=== PATIENT | female | born 1955 | race Native Hawaiian/Other Pacific Islander ===

== ENCOUNTER 2017-03-22 10:15 | Outpatient (CLI) | payer BC | END 2017-03-22 19:07 | disposition home or self-care (01) | LOC: MAMMO 10:15 | DX: Z12.31 Encounter for screening mammogram for malignant neoplasm of breast (principal); M05.79 Rheumatoid arthritis with rheumatoid factor of multiple sites without organ or systems involvement | CPT/HCPCS: G0202-TC ==

== ENCOUNTER 2017-05-12 08:54 | Outpatient (CLI) | payer BC | END 2017-05-12 20:00 | disposition home or self-care (01) | LOC: RAD 08:54 | DX: M85.89 Other specified disorders of bone density and structure, multiple sites (principal) ==

== ENCOUNTER 2017-08-22 14:00 | Outpatient (CLI) | payer BC | END 2017-08-22 15:30 | disposition home or self-care (01) | LOC: MRI 14:00 | DX: M25.551 Pain in right hip (principal) ==

== ENCOUNTER 2018-05-10 10:17 | Outpatient (CLI) | payer OTHER | END 2018-05-10 20:02 | disposition home or self-care (01) | LOC: RAD 10:17 | DX: R07.89 Other chest pain (principal) ==

== ENCOUNTER 2019-01-25 10:12 | Outpatient (CLI) | payer OTHER ==
[2019-01-25 10:52] LABS: PLATELET COUNT 282 K/uL (152-353)
[2019-01-25 11:23] LABS: POTASSIUM 3.8 mmol/L (3.6-5.2)
== END 2019-01-25 19:54 | disposition home or self-care (01) ==
LOC: LABW 10:12
PROVIDERS: Nurse Practitioner
DX: D64.9 Anemia, unspecified (principal); E03.8 Other specified hypothyroidism; E87.5 Hyperkalemia; E53.8 Deficiency of other specified B group vitamins
CPT/HCPCS: 36415; 80048; 82607; 84443; 85027

== ENCOUNTER 2019-04-17 08:36 | Emergency (ER) | payer OTHER ==
[~2019-04-17] VITALS: Ht 154.9 cm; Wt 95.3 kg
[2019-04-17] MEDS ORDERED: HYDROCO/APAP1 T14 PO (09:11)
[2019-04-17] MEDS ORDERED: TIROSINT50 MCG PO (09:12)
[2019-04-17] MEDS ORDERED: KP FOLIC ACID1 MG PO ×2 (09:13→09:19)
[2019-04-17] MEDS ORDERED: ESCITALOPRAM10 MG PO (09:13)
[2019-04-17] MEDS ORDERED: OMEPRAZOLE40 MG PO (09:14)
[2019-04-17] MEDS ORDERED: LISI20TA11 PO (09:15)
[2019-04-17] MEDS ORDERED: TIZANIDINE HYDRO4 MG PO (09:16)
[2019-04-17] MEDS ORDERED: TRAZODONE HYDR150 MG PO (09:18)
[2019-04-17] MEDS ORDERED: LYRICA100 MG PO (09:18)
[2019-04-17] MEDS ORDERED: TRELEGY ELLIPTA1 AER INH (09:20)
[2019-04-17] MEDS ORDERED: PHENTERMINE37.5 MG PO (09:21)
[2019-04-17 09:28] LABS: PLATELET COUNT 252 K/uL (152-353)
[2019-04-17 09:35] LABS: POTASSIUM 3.4 mmol/L (3.6-5.2)
[2019-04-17 11:40] VITALS: BP 143/83; TEMP 97.6
== END 2019-04-17 11:40 | disposition home or self-care (01) ==
LOC: ED 08:36
PROVIDERS: Family Medicine
DX: K29.60 Other gastritis without bleeding (principal); R11.2 Nausea with vomiting, unspecified; E87.6 Hypokalemia
CPT/HCPCS: 36415; 74022; 80053; 85027; 99283; J2405

== ENCOUNTER 2019-05-01 09:48 | Outpatient (CLI) | payer OTHER ==
[~2019-05-01 09:48] MED LIST: ESCITALOPRAM10 MG PO; HYDROCO/APAP1 T14 PO; KP FOLIC ACID1 MG PO; LISI20TA11 PO; LYRICA100 MG PO; OMEPRAZOLE40 MG PO; PHENTERMINE37.5 MG PO; TIROSINT50 MCG PO; TIZANIDINE HYDRO4 MG PO; TRAZODONE HYDR150 MG PO; TRELEGY ELLIPTA1 AER INH
== END 2019-05-01 23:01 | disposition home or self-care (01) ==
LOC: RAD 09:48
DX: Z13.820 Encounter for screening for osteoporosis (principal); N95.8 Other specified menopausal and perimenopausal disorders

== ENCOUNTER 2019-06-20 13:14 | Outpatient (CLI) | payer OTHER | END 2019-06-20 22:18 | disposition home or self-care (01) | LOC: MAMMO 13:14 | DX: Z12.31 Encounter for screening mammogram for malignant neoplasm of breast (principal) ==

== ENCOUNTER 2020-05-21 11:41 | Outpatient (CLI) | payer OTHER | END 2020-05-21 22:06 | disposition home or self-care (01) | LOC: RAD 11:41 | DX: R06.02 Shortness of breath (principal) ==

== ENCOUNTER 2020-06-12 08:19 | Outpatient (CLI) | payer OTHER | END 2020-06-12 14:14 | disposition home or self-care (01) | LOC: LAB 08:19 | PROVIDERS: ATTEND Nurse Practitioner Family | DX: R06.02 Shortness of breath (principal); R53.83 Other fatigue; R52 Pain, unspecified | CPT/HCPCS: 87635; G2023; U0003 ==

== ENCOUNTER 2021-02-13 10:30 | Outpatient (CLI) | payer OTHER ==
[2021-02-13 10:54] LABS: PLATELET COUNT 257 K/uL (152-353)
[2021-02-13 11:28] LABS: POTASSIUM 4.8 mmol/L (3.6-5.2)
== END 2021-02-13 21:47 | disposition home or self-care (01) ==
LOC: LAB 10:30
PROVIDERS: ATTEND Internal Medicine
DX: I11.0 Hypertensive heart disease with heart failure (principal); E03.8 Other specified hypothyroidism; K21.9 Gastro-esophageal reflux disease without esophagitis; F41.8 Other specified anxiety disorders; J44.9 Chronic obstructive pulmonary disease, unspecified; D64.89 Other specified anemias; E53.8 Deficiency of other specified B group vitamins; E66.9 Obesity, unspecified; Z79.899 Other long term (current) drug therapy; E55.9 Vitamin D deficiency, unspecified
CPT/HCPCS: 80053; 80061; 82306; 82607; 83036; 84439; 84443; 85027

== ENCOUNTER 2021-04-15 12:12 | Inpatient (IN) | payer OTHER ==
[~2021-04-15] VITALS: Ht 152.4 cm; Wt 68.2 kg
[2021-04-15 17:01] LABS: PLATELET COUNT 268 K/uL (152-353)
[2021-04-15 17:07] LABS: POTASSIUM 4.2 mmol/L (3.6-5.2)
[2021-04-15 17:53] VITALS: BP 141/72; TEMP 98.4; Ht 152.4 cm; Wt 68.2 kg
--- NOTE | 2021-04-15 18:14 | NUR ---
1212 REPORT RECIEVED FROM YOUSIF GEE. AT [facility] 1530 PT ARRIVED TO [facility] VIA STRETCHER ACCOMPANIED BY STAFF FROM [facility]. HEAD TO TOE ASSESSMENT COMPLETED. SKIN TEAR TO LFA. RED AREA TO RT TRICEP, RED AREA TO LEFT TRICEP. 0.5CMX0.5CMX0.1CM RED AREA TO LABIA MAJORA.
[2021-04-15 19:51] VITALS: BP 116/67; TEMP 98.8
--- NOTE | 2021-04-15 20:30 | NUR ---
ROUNDS MADE. PT COMPLAINED WITH PAIN. PT DOES HAVE DURGESIC PATCH 12.5 MG AND DURGESIC PATCH [address] ASSESSMENT WAS DONE. PT WITH FIXATOR TO LEFT ANKLE. DAVID HOSE TO RIGHT LEG. PT USING WICK WITH ASSISTANCE WITH URINATION.
--- NOTE | 2021-04-16 06:20 | NUR ---
PATIENT HAD A TOTAL BED CHANF AND WAS REPOSITIONED. PATIENT WAS GIVEN SOMETHING FOR PAIN AND SOMETHING TO DRINK
[2021-04-16 08:00] VITALS: BP 125/56; TEMP 99
--- NOTE | 2021-04-16 11:03 | NUR ---
CALLED POLLY AT [phone] FOR WOUND CARE INSTRUCTIONS. MESSAGE LEFT
--- NOTE | 2021-04-16 14:24 | NUR ---
POLLY CALLED FROM DR HOOD OFFICE PT HAS FOLLOW P AP[POINTMENT ON 04/24/21 AT 10 AM. ORDERS TO KEEP SURGICAL SITE CLEAN DRY AND INTACT.
--- NOTE | 2021-04-16 15:03 | NUR ---
KAYCE DOUGHERTY RN AND MYSELF NICOLE MOSHER LPN, CM SPOKE WITH MRS. MONTOYA CONCERNING HER TRANSPORT TO HER DR APPT ON APRIL 24, 2021 @ 10:00. PATIENT HAS AGREED FOR [facility] TO TRANSPORT HER BY STRETCHER DUE TO HAVING AN EXTERNAL FIXATOR AND NEEDING MEDICAL PERSONNEL TO MONITOR.I SPOKE WITH REHANA AT DR. HOOD OFFICE TO CONFIRM THAT THE PATIENT WOULD BE ABLE TO ATTEND THE DR APPOINTMENT WITH MRS. MONTOYA.
[2021-04-16 19:44] VITALS: BP 114/57; TEMP 98.9
[2021-04-16] MEDS ORDERED: LYRICA150 MG PO ×2 (20:18→20:20)
[2021-04-16] MEDS ORDERED: ROPI5T PO (20:22)
[2021-04-16] MEDS ORDERED: METOPROLOL25 M1 PO (20:23)
[2021-04-16] MEDS ORDERED: PRED10TA27 PO (20:24)
[2021-04-16] MEDS ORDERED: HYDR5TAB9 PO (20:25)
[2021-04-16] MEDS ORDERED: DULO60CA2 PO (20:26)
[2021-04-16] MEDS ORDERED: ONDA4TAB3 PO (20:26)
[2021-04-16] MEDS ORDERED: PEPCID20 MG PO (20:27)
--- NOTE | 2021-04-17 03:14 | NUR ---
PATIENT WAS HELPPED TO THE BEDPPAN. THE PATIENT ROLLED WITH MINIMAL ASSIST. PATIENT STATED, "I CANNOT WIPE MY SELF." I WIPPED THE PATIENT AND THEN AFTER SHE WAS FINISHED. THE PATIENT WAS COACHED ON HOD TO PULL HERSELF UP IN BED. AND PATIENT ALSO ASSISTED IN REPOSITONING HERSELF
--- NOTE | 2021-04-17 04:52 | NUR ---
PATIENT VOICED PAIN IN HER LEG AND WAS REPOSITIONED AND GIVEN PRN PAIN MEDICATION
--- NOTE | 2021-04-17 06:44 | NUR ---
Patient is in the Swing Bed program and I visited yesterday am at lunch time and saw she and her and tlaking with them and Silva nurse was in the room while I was talking with them. She receives chicken pot pie and steamed broccoli and yogurt with blueberries. She said she has not had an appeitet d/t smells and nausea but I observed her eating and she ate good and stated she can't eat broccoli gives her too much gas and I passed this along to the FSD/CDM Afsaneh to note on her diet card. Per chart is on a Regular diet and 2000 Calorie diet plan. Open fracture and dislocation of left ankle, afib, HTN, CHF, chronic pain to back, Fibromyalgia, and is 5' at 210.2 lbs. and is a 65YOF and BMI at 41 and is Class III Obesity and kcal and IBW for height is 100+/-10% ((0 to 110) and is 210% of IBW and kcal needs x 25 = 1100, x 30 = 1400, x 35 = 1600, x 40 = 1800 kcal/day, protein needs at 68 grams and fluids x 25 = 1100, x 30 = 1400, x 35 = 1600, x 40 = 1800 ml/cc per day and has a diagnosis of CHF so may want to limit to 1500 ml/cc per day. Was sent from [facility] in [place] and has an appointment to return in the next week or so and Kia was at IDT meeting and she is going to rescheudle for a later appointemtn was at 10:00 am and now wanting 1:00 pm. this is what aptient and family want as well as transport. BOOP, CKD, chronic pain, CHF, Degenerative Disc Disease, HTN, Macrocyctic Anemia, morbid obesity, sleep apnea, RA, and RBC, Hgb, Hct, MCHC and calcium all depressed and MCV, MCH and RDW all elevated and RD reviewed the whole chart/EMR. RD Recommendations: 1-Clarification on diet order- on MD's notes has a Regular diet and on patient name with name has 2000 calorie. Needs to be on 2000 Calorie HIGH FIBER and Cardiac or Low Sodium Low Fat d/t diagnosis if will follow and if won't follow needs to get a dietary refusal signed. 2-Monitor Labs 3-PT to work with the patient 4-OT to work with the patient and Shellie was at the meeting who is SP 5-Increase foods High In Fe 6-Increase foods high in Calcium 7-Make sure hydrated 8-Add Vitamin C 500 mg BID 9-Add ZNSO4 220 mg per day and d/c in 14 days 10-Add protein 30 ml/cc or 1 scoop TID to help with healing. 11-Pain Management 12-If limit fluids d/t DHF may want to limit to 1500 ml/cc per day.
--- NOTE | 2021-04-17 08:30 | NUR ---
PT LAYING IN BED IN LF. AM ASSESSMENT COMPLETED AT THIS TIME. HR NOTED TO BE REGULAR ON AUSCULTATION, LUNGS SOUNDS CLEAR THROUGH OUT BILAT. NO EDEMA NOTED. PT ALERT AND ORIENTED X4. PT ASSISTED ON BEDPAN BY RODERICK DUNCAN AND MYSELF. PT NOTED TO HAVE LARGE LOOSE BM. DRESSING TO LEFT LOWER EXTREMITY INTACT AROUND EXTERNAL FIXATOR, ELEVATED ON PILLOWS. PT DENIES ANY PAIN AT THIS TIME. PT PULLED SELF OVER IN BED TO GET ON BEDPAN. PT TOLERATED AM MEDS WELL. NAD NOTED.
[2021-04-17 09:00] VITALS: BP 107/52; TEMP 98.7
--- NOTE | 2021-04-17 10:40 | NUR ---
PT CALLED TO [facility] REQUESTING HER PAIN MEDICATION AT THIS TIME.
--- NOTE | 2021-04-17 10:45 | NUR ---
PT MEDICATED FOR PAIN PER MD ORDERS.
--- NOTE | 2021-04-17 13:00 | NUR ---
LAURA PT REPORTS ASSISTING PT BACK TO BED.
--- NOTE | 2021-04-17 13:15 | NUR ---
IN TO CHECK ON PT. PT NOTED TO BE AT BEDSIDE. PT LAYING IN BED ON LEFT SIDE IN LF. LLE ELEVATED. PT DENIES ANY NEEDS OR C/O AT THIS TIME. PT'S REPORTS GIVEN THE NURSE YESTERDAY AND COPY OF HER HOME MEDICATION LIST ALONG WITH SOME OTHER PAPERS AND DID NOT REC'V THEM BACK. OBTAINED PAPER'S PT'S REQUESTED BACK, MADE A COPY AND GAVE TO LESLIE STUART COORDINATOR AND RETURNED ORIGINALS BACK TO PT'S . PT ASSISTED ON TO BEDPAN AT THIS TIME WITH MINIMAL ASSISTANCE. INSTRUCTED PT TO CALL WHEN SHE WAS FINISHED.
[2021-04-17 20:00] VITALS: BP 107/55; TEMP 98.3
--- NOTE | 2021-04-17 21:00 | NUR ---
ENTERED PATIENT'S ROOM AT THIS TIME. PATIENT RESTING QUIETLY IN BED WATCHING TV. NAD NOTED. REPORTS NO SIGNIFICANT PAIN AT THIS TIME. LEFT LOWER EXTREMITY ELEVATED. EXTERNAL FIXATOR INTACT. PATIENT IS ABLE TO MOVE HER TOES. TWO FENTANYL PATCHES INTACT TO UPPER BACK. SHE DOES REPORT SOME NAUSEA- ZOFRAN 4MG ODT GIVEN PER MD ORDERS. ASSISTED HER IN BED. NO OTHER CONCERNS VOICED AT THIS TIME. CALL LIGHT WITHIN REACH.
--- NOTE | 2021-04-18 00:50 | NUR ---
PATIENT CALLED REQUESTING SOMETHING FOR PAIN. OXYCODONE 5MG GIVEN. CALL LIGHT WITHIN REACH.
--- NOTE | 2021-04-18 01:30 | NUR ---
PATIENT REQUESTING THAT I LISTEN TO HER LUNGS. SHE IS CONCERNED THAT SHE HAS DEVELOPED A SLIGHT COUGH. I DID REMIND HER THAT UPON ASSESSMENT HER LUNGS WERE CLEAR, BUT I ALSO LISTENED TO THEM A SECOND TIME. LUNG SOUNDS CLEAR TO AUSCULTATION. PATIENT DOES HAVE A SMALL COUGH THAT DOES NOT APPEAR TO BE PRODUCTIVE. HUEYN VERBALIZED UNDERSTANDING OF THE ABOVE. CALL LIGHT WITHIN REACH.
--- NOTE | 2021-04-18 07:35 | NUR ---
PT LAYING IN BED IN LF. PT JUST SLOWLY WAKING UP. PT REQUESTS TO BE PLACED ON BEDPAN. PT NOTED TO HAVE A WET DEPENDS ON AT THIS TIME. PT VOIDED IN BEDPAN. PT CLEANED AND DRYED BY ME. SPRINKLED LIGHT AMOUNT OF BABY POWDER ON PT'S CHUCKS AND SHEETS TO PREVENT SWEATING AND STICKING TO HER. NO REDNESS OR BREAKDOWN NOTED AT THIS TIME.
[2021-04-18 08:00] VITALS: BP 140/55; TEMP 99.6
--- NOTE | 2021-04-18 08:50 | NUR ---
AM ASSESSMENT COMPLETED AT THIS TIME. MINIMAL SWELLING NOTED TO LLE. EXTERNAL FIXATOR IN PLACE AND DRESSING CLEAN DRY AND INTACT. CAP REFILL TO LLE <3 SECONDS. PEDAL PULSE PRESENT AND REGULAR IN RLE. NO SWELLING NOTED TO RLE. PT REPORTS HER ABD FEELING BLOATED. POSITIVE BS X4 QUADRANTS. HR REGULAR ON AUSCULTATION. BILAT LUNG SOUNDS CLEAR THROUGH OUT. PT ALERT AND ORIENTED X4. NAD NOTED. PT TOLERATED AM MEDS WELL WITHOUT DIFFICULTY. PT REQUESTED MIRALX MIXED IN GRAPE JUICE. PT RATES PAIN 10 AT THIS TIME IN LLE. PT GIVEN PAIN MED PER MD ORDERS. TOMER, PT HERE TO PREFORM THERAPY WITH PT. PT REFUSES STATING SHE "WILL HAVE TO WAIT UNTIL HER PAIN MEDICINE KICKS IN BEFORE SHE DOES THERAPY OR SHE WILL GET NAUSEATED." TOMER STATES "WE CAN DO SOME ARM EXERCISES WHILE WE WAIT FOR YOUR PAIN MEDICINE TO START WORKING" PT AGAIN REFUSES TO DO UPPER EXTREMITY EXERCISES UNTIL HER PAIN MEDICINE IS WORKING. TOMER THEN TELLS HER "OK I WILL COME BACK BUT JUST KNOW IT WILL PROBABLY BE AFTER LUNCH BEFORE I CAN GET BACK OVER HERE" PT VERBALIZES UNDERSTANDING. REMINDED PT THAT IF SHE DOES NOT PERFORM HER THERAPY WE DO HAVE TO DOCUMENT THAT SHE IS REFUSING HER THERAPY. PT STATES "THEY BETTER NOT SAY I REFUSED" REMINDED PT THAT SHE HAS REFUSED AT THIS TIME AND THERAPIST WILL BE BACK AFTER LUNCH TO WORK WITH HER AND SHE WILL NEED TO WORK WITH HER. PT VERBALIZES UNDERSTANDING.
[2021-04-18 20:02] VITALS: BP 119/67; TEMP 98.4
--- NOTE | 2021-04-18 20:50 | NUR ---
PT ALERT AND ORIENTED LAYING IN BED WITH HOB ELEVATED WATCHING TV WITH NO S/S OF ACUTE DISTRESS NOTED, EXTERNAL FIXATOR AND DRESSING INTACT TO L LOWER LEG WITH NO PROBLEMS NOTED, RESP RATE NONLABORED ON ROOM AIR. PT TALKATIVE WITH REED DIPPER. NIGHTLY MEDS GIVEN PT HELD MED CUP AND DRINK TOOK MEDS PER SELF. PRN ROXICODONE 5MG PO GIVEN PER PT REQUEST FOR CONSTANT PAIN TO L LOWER LEG THAT IS A "9" ON SCALE. WILL MONITOR CLOSELY, RAILS UP, BED IN LOW POSITION, CALL LIGHT IN REACH, ENCOURAGED TO CALL NEEDED.
--- NOTE | 2021-04-18 22:00 | NUR ---
PT RESTING WITH EYES CLOSED, NO ACUTE DISTRESS NOTED, WILL MONITOR CLOSELY.
--- NOTE | 2021-04-19 01:00 | NUR ---
RESTING IN BED WITH EYES CLOSED, NO S/S OF PAIN OR DISTRESS NOTED, RESP RATE NONLABORED, WILL MONITOR, RAILS UP, BED IN LOW POSITION, CALL LIGHT IN REACH.
--- NOTE | 2021-04-19 03:06 | NUR ---
PT CALLED TECHNICAL OPERATIONS MANAGER LIGHT, PT PLACED ON BEDPAN WITH ASSIST. WILL MONITOR CLOSELY, RAILS UP, BED IN LOW POSITION, CALL LIGHT IN REACH.
--- NOTE | 2021-04-19 03:47 | NUR ---
PT AWAKE AND TALKATIVE WITH MARINE METEOROLOGIST, BROUGHT PT SNACK OF SOUP PER REQUEST. C/O CONSTANT PAIN TO L LOWER LEG THAT IS A '7" AND WHEN ASKED TO DESCRIBE THE PAIN SHE STATES PAIN THAT ABOUT TO GET WORSE. GAVE ROXICODONE 5MG PO PRN PER REQUEST. ALSO MENTIONS SLIGHT RED IRRITATED AREAS IN ABD FOLD AND UNDER BREAST, INFORMED PT THAT MARINE METEOROLOGIST WOULD PASS ALONG TO DAY SHIFT SO DR COULD ORDER POSSIBLY SOME NYSTATIN FOR THE AREAS, PT ACKNOWLEDGES UNDERSTANDING. PLASTIC SANDOVAL UNDER PT CHANGED TO WASHABLE FABRIC SANDOVAL DUE TO PT HAS WHAT SHE STATES IS HEALING HEAT RASH ON HER BACK BUT IT IS ITCHING HER AGAIN, WIPED AREA WITH COOL WIPE PER REQUEST THEN CHANGED SANDOVAL UNDER PT NOTE PT ROLLS SIDE TO SIDE WITH LIMITED ASSIST. WILL MONITOR, RAILS UP, BED IN LOW POSITION, CALL LIGHT IN REACH.
--- NOTE | 2021-04-19 04:20 | NUR ---
STATES HER PAIN HAS DECREASED TO 5 ON SCALE SINCE PRN MEDICATION, ALSO STATES THAT A LEVEL 5 IS TOLERABLE.
--- NOTE | 2021-04-19 05:15 | NUR ---
PT AWAKE LAYING IN BED WITH NO S/S OF PAIN OR DISTRESS NOTED, RESP RATE NONLABORED, ON ROOM AIR, EXTERNAL FIXATOR AND DRESSING INTACT TO L LOWER LEG WITH NO PROBLEMS NOTED TO SITE. L LEG ELEVATED ON PILLOW PER PT REQUEST STATES THAT HER LEG FEELS BETTER ON PILLOW. TALKATIVE WITH STAFF, WILL MONITOR, RAILS UP, BED IN LOW POSITION. NOTE PT LIFTS L LEG UP BY HER SELF AND STRIPPER PRINTED CIRCUIT BOARDS PLACED PILLOW UNDER LEG.
[2021-04-19 08:00] VITALS: BP 118/66; TEMP 98.5
--- NOTE | 2021-04-19 10:09 | NUR ---
INFORMED DR. SALDAÑA OF PT HAVING INCREASING REDDNESS TO FOLDS UNDER BREAST AND ABDOMEN, DR. SALDAÑA ORDES NYSTOP POWDER TID PRN, NO FURTHER ORDERS GIVEN AT THIS TIME
--- NOTE | 2021-04-19 17:02 | NUR ---
NOTIFIED DR. SALDAÑA OF PT'S HR CURRENTLY 115 AND PT HAS A HOME MEDICATION OF METOPROLOL 50MG BID THAT WAS NOT RESTARTED, DR. SALDAÑA STATES DUE TO PT'S BP REMAINING LOW TO START PT ON METOPROLOL 12.5 PO BID AND HOLD IF SYSTOLIC IS LESS THAN 110, NO FURTHER ORDERS GIVEN AT THIS TIME
[2021-04-19 20:00] VITALS: BP 141/89; TEMP 98.9
--- NOTE | 2021-04-19 20:20 | NUR ---
PT AWAKE, ALERT, AND ORIENTED SITTING UP IN BED WATCHING TV WITH NO S/S OF PAIN OR DISTRESS NOTED. TALKATIVE WITH ASSET PROTECTION GREETER AND STATES SHE HAS HAD A GOOD DAY. EXTERNAL FIXATOR AND DRY DRESSING INTACT TO L LOWER LEG WITH NO PROBLEMS OR S/S OF INFECTION NOTED TO SITE. WILL MONITOR CLOSELY, RAILS UP, BED IN LOW POSITION, CALL LIGHT IN REACH, ENCOURAGED PT TO CALL NEEDED.
--- NOTE | 2021-04-19 21:28 | NUR ---
PT AWAKE AND TALKATIVE WITH NO S/S OF ACUTE DISTRESS OR PAIN NOTED, RESP RATE NONLABORED. GAVE NIGHTLY MEDICATIONS WITH NO PROBLEMS, PT HOLDS DRINK AND MEDICATION CUP THEN TAKES MEDS PER SELF. SYSTOLIC B/P IS NOT LOWER THAN 110 SO METOPROLOL 12.5MG PO GIVEN PER ORDER. BROUGHT PT SOME ICE AND A DRINK. PT NOW WATCHING TV, WILL MONITOR CLOSELY, RAILS UP, BED IN LOW POSITION, CALL LIGHT IN REACH.
--- NOTE | 2021-04-19 22:14 | NUR ---
PT C/O ITCHING TO THE INSIDE OF VAGINAL AREA AND UNDER VAGINAL FOLDS(REDNESS NOTED) REQUESTING SOMETHING BY MOUTH FOR WHAT SHE THINKS MIGHT BE A YEAST INFECTION. NOTE PT DOES HAVE ORDER FOR NYSTATIN POWDER BUT STATES SHE NEEDS SOMETHING FOR THE INSIDE. ALSO STATES SHE HAS TAKEN MELATONIN BEFORE AND REQUEST SOMETHING FOR SLEEP SINCE SHE WOKE UP AT 0300 THIS MORNING AND NEVER WENT BACK TO SLEEP. INFORMED PT THAT OPERATIONS SUPPORT SPECIALIST WOULD CALL AND TALK WITH ER DOCTOR ABOUT HER CONCERNS AND S/S. RAILS UP, BED IN LOW POSITION, CALL LIGHT IN REACH, ENCOURAGED TO CALL NEEDED.
--- NOTE | 2021-04-19 22:20 | NUR ---
SPOKE WITH DR. PEDRAZA IN THE ER ABOUT PT'S CONCERNS AND S/S. NEW ORDER FOR MELATONIN 5MG PO Q HS PRN FOR SLEEP, DIFLUCAN 150MG PO X 1 DOSE NOW. T.O. R&V DR. PEDRAZA/BE SUÁREZ RN.
--- NOTE | 2021-04-19 23:17 | NUR ---
PT AWAKE SITTING UP IN BED WITH NO DISTRESS NOTED, VERY TALKATIVE WITH STAFF. C/O CONSTANT PAIN TO L LOWER LEG THAT JUST HURTS AND IS A "9" ON SCALE. GAVE OXYCODONE 5MG PO PRN PER PT REQUEST. PT ASSISTED TO USE BEDPAN, PT ROLLS SIDE TO SIDE PER SELF THEN DIRECTOR PRIVATE PLACED BEDPAN UNDER HER ONCE FINISHED DIRECTOR PRIVATE CLEANED PT AND REMOVED BEDPAN. URINATED 125ML YELLOW URINE. PT LIMITED ASSIST IN THE BED.
--- NOTE | 2021-04-20 00:44 | NUR ---
PT REMAINS ALERT AND TALKATIVE WITH KILN OPERATOR, RESP RATE NONLABORED, ON ROOM AIR. C/O A CONSTANT HEADACHE THAT IS "TIGHT" AND RATES IT A "10" ON SCALE STATES SHE THINKS IT IS HER SINUSES. GAVE TYLENOL 500MG PO PRN PER PT REQUEST. WILL MONITOR CLOSELY, RAILS UP, BED IN LOW POSITION, CALL LIGHT IN REACH. PT SITTING UP ON SIDE OF BED EATING A SNACK AND WATCHING TV, EXTERNAL FIXATION DEVICE AND DRESSING INTACT TO L LOWER LEG WITH NO PROBLEMS NOTED TO SITE.
--- NOTE | 2021-04-20 01:30 | NUR ---
RESTING WITH EYES CLOSED, NO S/S OF PAIN OR DISTRESS NOTED.
--- NOTE | 2021-04-20 04:45 | NUR ---
RESTING WITH EYES CLOSED, NO S/S OF PAIN OR DISTRESS NOTED, WILL MONITOR, RAILS UP, BED IN LOW POSITION, CALL LIGHT IN REACH.
[2021-04-20 08:00] VITALS: BP 125/69; TEMP 98.3
--- NOTE | 2021-04-20 10:10 | NUR ---
PT C/O WARMTH, REDNESS TO LEFT LATERAL ANKLE. ASSESSED AND NOTED SLIGHT EDEMA AND REDNESS TO AREA ABOVE AND BELOW FIXATOR. PT STATES AREA AROUND FIXATOR ON LATERAL L ANKLE TENDER WELL. EITAN WRAP REMOVED AND SKIN TO TOP OF FOOT PINK AND WARM, NO PAIN WHEN WIGGLING TOES. EITAN REPLACED. CHARGE NURSE IN TO ASSESS. DR. JALLOH NOTIFIED. V/O TO MONITOR FOR CHANGES. PT ALSO C/O ITCHING. DR. JALLOH NOTIFIED, NEW ORDERS GIVEN.
--- NOTE | 2021-04-20 10:27 | NUR ---
PT WHEELED TO SHOWER BY PT.
--- NOTE | 2021-04-20 10:54 | NUR ---
PT BACK FROM SHOWER, TOLERATED ACTIVITY WELL, ABLE TO PIVOT WITH ASSIST FROM PT FROM WC TO BED.
--- NOTE | 2021-04-20 11:20 | NUR ---
REMOVED TEGADERM FROM LA, CLEANED WITH NS AND PATTED DRY. NO REDNESS OR DRAINAGE NOTED, LEFT OPEN TO AIR.
--- NOTE | 2021-04-20 13:00 | NUR ---
PT C/O 08/30 PAIN- DR. JALLOH NOTIFIED- VO GIVEN TO INCREASE LYRICA. DR. JALLOH TO CALL DR. OKEEFE ( PAIN MGMT) ABT INCREASING PAIN MEDICATION. PT UPDATED ON THIS. AT BEDSIDE.
--- NOTE | 2021-04-20 15:07 | NUR ---
PT IN ROOM ALONE, IN SUPINE POSITION IN BED, SNORING. PT IN NAD AT THIS TIME, CALL LIGHT IN EASY REACH. WILL CONTINUE TO MONITOR.
--- NOTE | 2021-04-20 17:10 | NUR ---
PT CONTINUES TO SLEEP QUIETLY AT THIS TIME. CALL LIGHT IN EASY REACH. WILL CONTINUE TO MONITOR.
--- NOTE | 2021-04-20 18:54 | NUR ---
ASSISTED PT BACK TO LAYING FROM SITTING POSITION AND PLACED LLE ONTO PILLOW. PT IN NAD AT THIS TIME. CALL LIGHT IN EASY REACH. BED LOW, LOCKED WITH SR UP X2 FOR SAFETY. CALL LIGHT IN EASY REACH.
--- NOTE | 2021-04-20 19:30 | NUR ---
PT WAS POSITIONED ON BEDPAN. PT URINATED CLEAR URINE. PT ABLE TO ASSIST WITH TURNING TO HER LEFT SIDE. LEFT ANKLE AND LOWER EXTREMITY SECURE IN FIXATOR. DRESSING INTACT. FOOT/TOES COLOR IS PINK. PT STATES THAT SHE HAS COMPLETED SOME PHYSICAL THERAPY TODAY. PT WAS ASSESSED. CALL LIGHT IN REACH. BEDSIDE TABLE IN EASY REACH.
[2021-04-20 20:00] VITALS: BP 101/42; TEMP 98.8
--- NOTE | 2021-04-20 20:07 | NUR ---
COMPLAINTS OF LEFT LOWER LEG PAIN. MEDICATED WITH ROXICODONE ORDERED. PT WAS GIVEN LYRICA 100MG PO AND BENADRYL 25 MG PO GIVEN. NEW MEDICATIONS STARTED ORDERED TODAY. PT'S LEFT EXTREMITY IS ELEVATED ON PILLOW. FIXATOR INTACT. DRESSING INTACT. BEDSIDE TABLE IN REACH. PT DRANK APPROX 60 ML OF WATER. CALL LIGHT IN REACH.
--- NOTE | 2021-04-20 20:30 | NUR ---
MEDICATION EFFECTIVE. PT STATES PAIN DECREASING RATE OF 5.
--- NOTE | 2021-04-21 00:42 | NUR ---
PT IS RESTING WITH EYES CLOSED UPON ROUNDS.
--- NOTE | 2021-04-21 02:21 | NUR ---
PRN BENADRYL CREME APPLED TO BACK FOR ITCHING
--- NOTE | 2021-04-21 02:38 | NUR ---
PT'S BACK PAD WAS CHARGED. PT WAS CLEANED WITH WIPES. BENADRYL CREAM WAS APPLIED TO ALL AREAS.
--- NOTE | 2021-04-21 03:01 | NUR ---
PATIENT UP IN BED EATING SOUP
--- NOTE | 2021-04-21 06:05 | NUR ---
PT WAS GIVEN ROXICODONE 5 MG PO FOR COMPLAINTS OF PAIN. PT WAS GIVEN BENADRYL 25 MG PO FOR COMPLAINTS OF ITCHING AT 05:30AM.
--- NOTE | 2021-04-21 06:10 | NUR ---
PT HAS RESTED THIS SHIFT. PT ATE 2 CUPS OF TOMATO SOUP. TOLERATED WELL WITHOUT C/O NAUSEA OR VOMITING. PT HAS BEEN ASSISTING HER POSITIONING IN BED. PT STATES,"FEELING SO MUCH BETTER". CALL LIGHT IN EASY REACH. BEDSIDE TABLE CLOSE TO PT'S REACH.
--- NOTE | 2021-04-21 06:31 | NUR ---
PATIENT REPORTED PAIN RELIEF OF HER LEG, AND OFFICE CLINICIAN WIPED OFF HER "ITCHY" BACK
[2021-04-21 08:00] VITALS: BP 102/50; TEMP 98.2
--- NOTE | 2021-04-21 09:25 | NUR ---
[facility] NON-EMERGENCY HAS ACCEPTED THE TRANSPORT TO DR FOSTER ON 04/24/21 AT 10:00AM TO DR HOOD. PER YOSELYN @ [facility] THE PATIENT WILL BE ALLOWED TO RIDE WITH THE PATIENT. THE PATIENT HAS BEEN NOTIFIED WELL THE STAFF. PATIENT WILL BE READY FOR TRANSPORT.
--- NOTE | 2021-04-21 11:15 | NUR ---
AT PT BEDSIDE. NO S/S OF DISTRESS. PT REQUESTED INCREASE IN PAIN MEDS AND BENADRYL FOR ITCHING. PT C/O RASH 0N BACK AND NO REDNESS OR RASH NOTED TO BACK AREA. PT. C/O 10 LB WEIGHT GAIN AND FLUID INTAKE MONITORED. PT REQUESTING LASIX AND 2 CUPS OF ICE. OFFERED PT. A WORD PUZZLE, A BOOK TO READ AND PT. REFUSED. PT USES BEDPAN AND IS ABLE TO ASSIST IN TURNING AND GETTING ONTO BEDPAN TO VOID.
--- NOTE | 2021-04-21 13:45 | NUR ---
THERAPY AT BEDSIDE WITH PATIENT ALONG WITH PATIENT'S .
[2021-04-21 20:00] VITALS: BP 115/73; TEMP 98.7
--- NOTE | 2021-04-21 20:45 | NUR ---
PT IS SITTING UP IN BED WITH LEFT LOWER EXTREMITY ELEVATED IN A LOW FOWLERS POSITION. PT'S BP AT THIS TIME IS 115/73 BEFORE ADMINISTERING PRN OXYCODONE 7.5 MG FOR PAIN. PM MEDS ALSO GIVEN AT THIS TIME. PT TOLERATED WELL. TEGADERM PUT OVER LEFT FOREARM SKIN TEAR. CALL LIGHT WITHIN REACH AND BED IN LOWEST POSITION.
--- NOTE | 2021-04-21 22:00 | NUR ---
PT IS RESTING QUIETLY WITH BREATHING EVEN AND NON-LABORED. NAD NOTED. CALL LIGHT WITHIN REACH.
--- NOTE | 2021-04-21 22:31 | NUR ---
PATIENT IS RESTING QUIETLY. BREATHING IS NON LABORED AND EVEN
--- NOTE | 2021-04-22 02:23 | NUR ---
BENADRYL 25 MG AND OXYCODONE 7.5 GIVEN AT THIS TIME FOR MODERATE PAIN TO THE LEFT LOWER EXTREMITY. PT'S BP WAS 110/72 AT THIS TIME. PT TOLERATED WELL. PT URINATED IN THE BEDPAN ALSO AT THIS TIME.
[2021-04-22 08:00] VITALS: BP 129/61; TEMP 98.1
--- NOTE | 2021-04-22 09:30 | NUR ---
ENTERED PT ROOM AND PT LYING IN BED IN SEMI-FOWLERS POSITION WATCHING TV. PT C/O RASH AND ITCHING ON HER BACK. ASSESSED PT BACK AND NO RASH OR REDNESS OR BUMPS NOTED TO PT BACK. DECREASED REDNESS AND SWELLING NOTED TO LEFT ANKLE/LEG.
--- NOTE | 2021-04-22 16:02 | NUR ---
PT C/O ITCHING ALL OVER HER BODY. CALL PHYSCIAN AND RECEIVED AN ORDER FOR VISTARIL 25MG PO X1 DOSE. PT REQUESTED TOMATO SOUP AND RECEIVED IT. NAD NOTED. PT LYING IN BED IN SEMI-FOWLERS POSITION.
[2021-04-22 20:00] VITALS: BP 94/52; TEMP 98.5
--- NOTE | 2021-04-22 20:20 | NUR ---
ENTERED PATIENT'S ROOM. PATIENT LYING IN BED WATCHING TV. RESPIRATIONS EVEN AND UNLABORED. NAD NOTED. LLE ELEVATED. ASSISTED PATIENT WITH BEDPAN. LIMITED ASSISTANCE X 1 REQUIRED. DENIES ANY PAIN OR DISCOMFORT AT THIS TIME. REQUESTING TOMATO SOUP. NO OTHER CONCERNS OR COMPLAINTS VOICED. BED LOCKED AND IN LOWEST POSITION. CALL LIGHT WITHIN REACH.
--- NOTE | 2021-04-23 03:15 | NUR ---
PATIENT RESTING QUIETLY IN BED WITH EYES CLOSED. RESPIRATIONS EVEN AND UNLABORED. NAD NOTED. CALL LIGHT WITHIN REACH.
--- NOTE | 2021-04-23 06:30 | NUR ---
PATIENT RESTING QUIETLY IN BED WITH EYES CLOSED. RESPIRATIONS EVEN AND UNLABORED. NAD NOTED. CALL LIGHT WITHIN REACH.
[2021-04-23 08:00] VITALS: BP 116/59; TEMP 99.4
--- NOTE | 2021-04-23 09:32 | NUR ---
PT IN BED IN SEMI-FOWLERS POSITION. REQUESTED HER HAIR BRUSH AND A HOT WASHCLOTH TO WASH HER FACE. ITEMS SUPPLIED TO PT. REPOSITIONED LLE ON PILLOW. NO REDNESS, WARMTH OR SWELLING NOTED TO LLE. C/O PAIN TO LLE, PAIN MED GIVEN ORDERED. NAD NOTED.
--- NOTE | 2021-04-23 14:35 | NUR ---
PT STATED THAT WHILE SHE WAS TAKING A SHOWER WITH THE ASSISTANCE OF PT, THE DRESSING TO HER LLE WAS ACCIDENTALLY WET BY THE SHOWER. THE GAUZE AT THE BOTTOM OF HER HEEL IS MODERATELY WET, NOT TOTALLY SOAKED. NO REDNESS OR DRAINAGE NOTED TO AREA. WILL NOTIFY ORTHO FOR FURTHER INSTRUCTIONS TO TAKE CARE OF DRESSING. NAD NOTED TO PT.
--- NOTE | 2021-04-23 15:18 | NUR ---
CALLED PHYSCIAN OFFICE REGARDING PT'S WET DRESSING TO LLE WHEN TAKING A SHOWER. SPOKE TO THE SAMEERA DAVIES AND GAVE RECOMMENDATIONS TO REMOVE THE MALI AND REPLACE WITH NEW DSG IF DRAINAGE NOTED.
--- NOTE | 2021-04-23 15:46 | NUR ---
PT IN BED IN SEMI-FOWLERS POSITION. NAD NOTED. REMOVED WET MALI FROM HEEL, NO DRAINAGE NOTED AND WAS NOT REWRAPPED WITH MALI. NO REDNESS OR SWELLING TO AREA. LLE ELEVATED ON PILLOW. DRESSING TO ANKLE AND MALI TO TOP OF EXTERNAL FIXATION DRY AND NO CHANGE NEEDED.
--- NOTE | 2021-04-23 16:02 | NUR ---
Meet with patient this am and then again this afternoon in the IDT team meeting conference and patient is pleased with meals and is on 1800 calorie diet plan and had peanut M and M's in her room. She did state she has had some nausea and think from the ZNSO4, she stated it was Vitamin C and the pharmacist and I discussed and we think it is the zinc. She said she is pleased with meals. Will follow-up as is needed.
[2021-04-23 16:23] LABS: PLATELET COUNT 592 K/uL (152-353)
--- NOTE | 2021-04-23 16:43 | NUR ---
REPORTED THAT HE OBSERVED PT WITH BIZZARE BEHAVIOR. 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 WHEN ASSESSING PT AT BEDSIDE PT A&O, CLEAR AND LOGICAL SPEECH, NO UNUSUAL OR BIZZARE BEHAVIOR OBSERVED. [facility] LAB RESULTS RETURNED AND RESULTS WERE REPORTED TO DR. LOVETT AND PTS BEHAVIOR ALSO REPORTED. PER PHYSCIAN NO FURTHER ACTION WILL BE TAKEN AT THIS TIME AND TO CONTINUE TO OBSERVE PT.
--- NOTE | 2021-04-23 19:28 | NUR ---
PT RESTING QUIETLY IN BED WITH EYES CLOSED, NO S/S OF PAIN OR DISTRESS NOTED, RESP RATE NONLABORED, WILL MONITOR CLOSELY, RAILS UP, BED IN LOW POSITION.
[2021-04-23 19:56] VITALS: BP 106/45; TEMP 98.6
--- NOTE | 2021-04-23 22:30 | NUR ---
PT AWAKE WITH NO ACUTE DISTRESS NOTED, RESP RATE NONLABORED, NO PROBLEMS NOTED TO EXTERAL FIXATOR TO L LOWER LEG, SCD IN USE. BROUGHT PT SOUP PER REQUEST. GAVE BENADRYL 25MG PO PRN FOR ITCHING TO BACK AND GAVE OXYCODONE 7.5MG PO PRN FOR CONSTANT PAIN TO L LOWER LEG THAT IS A 9 ON SCALE. PT TALKATIVE WITH ALGORITHM DEVELOPER AND HAS BEEN ASLEEP MOST OF THIS SHIFT. WILL MONITOR, RAILS UP, BED IN LOW POSITION, CALL LIGHT IN REACH.
--- NOTE | 2021-04-23 23:08 | NUR ---
AWAKE WITH NO DISTRESS NOTED, STATE HER PAIN IS STARTING TO DECREASE SINCE PRN MED GIVEN, PAIN IS ABOUT A 6. WILL MONITOR CLOSELY.
--- NOTE | 2021-04-24 00:15 | NUR ---
RESTING WITH EYES CLOSED, NO S/S OF PAIN OR DISTRESS NOTED, WILL MONITOR CLOSELY, RAILS UP, BED IN LOW POSITION, CALL LIGHT IN REACH.
--- NOTE | 2021-04-24 03:12 | NUR ---
RESTING IN BED WITH EYES CLOSED, NO S/S OF PAIN OR DISTRESS NOTED, WILL MONITOR CLOSELY, RAILS UP, BED IN LOW POSITION, CALL LIGHT IN REACH.
--- NOTE | 2021-04-24 05:00 | NUR ---
RESTING WITH EYES CLOSED, NO S/S OF PAIN OR DISTRESS NOTED, WILL MONITOR CLOSELY.
--- NOTE | 2021-04-24 06:34 | NUR ---
0615 PT NOW UP IN WHEELCHAIR AND DRESSED WITH ASSISTANCE OF STAFF, PT HAS DR APPOINTMENT THIS MORNING AND TRANSPORT WILL BE HERE TO GET PT AT 0730. PT USED BEDSIDE COMMODE WITH ASSIST X2 STAFF. NOW SITTING IN WHEELCHAIR BRUSHING HER TEETH AT SINK. BROUGHT BREAKFAST TRAY TO PT AT THIS TIME(0630). 0615 GAVE OXYCODONE 7.5MG PO PRN FOR CONSTANT PAIN TO L LOWER LEG THAT IS A "9" ON SCALE AND PT STATES IT JUST HURTS. WILL MONITOR CLOSELY.
--- NOTE | 2021-04-24 06:56 | NUR ---
PT UP AND DRESSED, EATING BREAKFAST, AWAITING TRANSPORT TO / AND TAKE HER TO WHITING. AT BEDSIDE. AM MEDS ADMIN AT THIS TIME SINCE PATIENT WILL NOT BE HERE AT REGULAR MED PASS TIMES. PT REQUESTS BENADRYL FOR ITCHING, BENADRYL CREAM OFFERED BUT PATIENT STILL REQUESTS BENADRYL PO. PT A/O X3, IS APPREHENSIVE ABOUT TRIP. FENTANYL PATCHES CHANGED- OLD PATCHES REMOVED AND DISCARDED IN SHARPS BOX, NEW PATCHES APPLIED TO NAPE OF NECK AND COVERED WITH TEGADERM. SLIGHT DISCOLORATION AND SWELLING NOTED AROUND FIXATOR TO LLE, FOOT FREE FROM SWELLING, NO DRAINAGE NOTED TO AREA. ONE SKIN TEAR TO LA COVERED WITH TEGADERM, TWO SKIN TEARS OPEN TO AIR. PT DRESSED SO WATERSHED ENGINEER UNABLE TO ASSESS AREA TO GROIN. PT'S PRIMARY COMPLAINT IS ITCHING AT THIS TIME. SHE TOLERATES 100% BREAKFAST AND IS IN NAD AT THIS TIME.
--- NOTE | 2021-04-24 07:50 | NUR ---
HERE TO TRANSPORT PT TO [facility]. PACKET OF INFO GIVEN TO TRANSPORT PERSONNEL.
[2021-04-24 08:00] VITALS: BP 131/66; TEMP 98.3
--- NOTE | 2021-04-24 08:03 | NUR ---
PT ASSISTED WITH BED TO STRETCHER TRANSFER AND POSITIONED FOR COMFORT. BLANKET SENT WITH PT. PT LEFT FLOOR IN NAD WITH EMS ENROUTE TO F/U APPT WITH [facility].
--- NOTE | 2021-04-24 13:01 | NUR ---
PT BACK FROM [facility] VIA TRANSPORT. NEW WOUND CARE ORDERS GIVEN. DR. LOVETT AWARE. PAIN MEDS ADMIN, PT ASSISTED WITH BEDPAN AND SET UP FOR LUNCH.
--- NOTE | 2021-04-24 18:00 | NUR ---
PIN SITE CARE DONE PER MD ORDER. PT JACQUELINE WELL
--- NOTE | 2021-04-24 18:42 | NUR ---
VO DR. LOVETT- SUNDAY BENADRYL, START BENADRYL 25MG PO Q6HR PRN ITCHING. START NORCO 5/325MG PO Q6HR PRN PAIN.
[2021-04-24 20:00] VITALS: BP 121/68; TEMP 98.9
[2021-04-25 08:26] VITALS: BP 114/52; TEMP 98.3
--- NOTE | 2021-04-25 13:11 | NUR ---
PIN SITE CARE PERFORMED PER MD ORDER. PT JACQUELINE WELL. SKIN AROUND PINS PINK WITH NO DRAINAGE, NO EDEMA NOTED, SKIN COLOR WNL. PT ABLE TO PICK AFFECTED LIMB UP AND ASSIST WITH TURNING. PT A/O X3, IN NAD. ABLE TO ASSIST WITH TURNING IN BED, USES BEDPAN WITH ASSIST. PT CONTINUES TO BE NWB LLE, IS ACTIVE WITH THERAPY AND WAS ASSISTED WITH BATH/LINENS CHANGE BY THERAPY EARLIER TODAY. PT MEALS TAKEN TO ROOM AND MIN ASSISTANCE WITH SET UP PROVIDED. LUNGS CTA, BOWEL SOUNDS ACTIVE, LAST BM 04/23.
[2021-04-25 20:00] VITALS: BP 122/56; TEMP 98.3
--- NOTE | 2021-04-25 20:50 | NUR ---
PT SITTING UP IN A HIGH FOWLERS POSITION AT THIS TIME WITH LOWER EXTREMITIES ELEVATED. PM MEDS GIVEN AT THIS TIME. PT TOLERATED WELL. NORO GIVEN FOR PAIN TO THE LEFT LEG AND VESTERIL GIVEN FOR CONSTANT ITCHING. VITALS WERE GOOD AND PT. USES BEDPAN WITH SET UP ASSIST ONLY. PT IS ABLE TO MOVE UP IN BED IF BED IS ADJUSTED.
[2021-04-26 08:00] VITALS: BP 143/55; TEMP 98
--- NOTE | 2021-04-26 08:30 | NUR ---
PATIENT RESTING IN BED EATING BREAKFAST AT THIS TIME. NAD NOTED. MORNING MEDICATIONS GIVEN. PATIENT FREE OF NEEDS AT THIS TIME.
--- NOTE | 2021-04-26 09:30 | NUR ---
PATIENT CALLED TO USE BSC. PATIENT TRANSFERRED TO BSC WITH ASSIST X1. PATIENT HAD A BOWEL MOVEMENT AND ATTEMPTED TO WIPE SELF. PATIENT ASSISTED WITH CLEANING. LINENS CHANGED BY HAT FORMER AND TECH. PATIENT THEN TRANSFERRED BACK TO BED WITH ASSIST X1. PATIENT RESTING IN BED WATCHING TV. LEFT FOOT ELEVATED ON PILLOW. PATIENT FREE OF NEEDS AT THIS TIME.
--- NOTE | 2021-04-26 10:45 | NUR ---
PATIENT CALLED NURSES STATION REQUESTING MEDICATION FOR ITCHING. PRN BENADRYL GIVEN PER MD ORDERS. NAD NOTED AND PT FREE OF NEEDS AT THIS TIME.
--- NOTE | 2021-04-26 11:13 | NUR ---
PATIENT CALLED NURSES STATIION FOR 2 CUPS OF ICE. PROVIDED ICE TO PATIENT. PT FREE OF FURTHER NEEDS AT THIS TIME.
--- NOTE | 2021-04-26 16:00 | NUR ---
PATIENT CALLED NURSES STATION REQUESTING TO USE BSC. PATIENT TRANSFERRED TO BSC WITH ASSIST X1. PATIENT IS TO BE NON-WEIGHTBEARING. PATIENT PLACED WEIGHT ON TOES OF LEFT FOOT. PATIENT REMINDED NOT TO BEAR WEIGHT ON FOOT. PATIENT STILL DID.
--- NOTE | 2021-04-26 16:55 | NUR ---
PIN SITE CARE COMPLETED PER MD ORDERS. CLEANED WITH HIBICLEANS, ALCOHOL, AND NS. DRIED WITH CLEAN GAUZE. PATIENT TOLERATED WELL WITH NO COMPLAINTS OF PAIN. PATIENT SKIN TEAR TO LEFT ARM DRESING REMOVED, CLEANED WITH NS, AND LEFT OPEN TO AIR. PATIENT FREE OF NEEDS AT THIS TIME. WILL CONTINUE TO MONITOR.
--- NOTE | 2021-04-26 17:22 | NUR ---
PATIENT HAS SMALL SKIN TO TEAR TO FINGER. BANDAID IN PLACE. PT REQUESTED TO USE BSC. PATIENT TRANSFERRED WITH ASSIST X1. PATIENT BEARING WEIGHT ON TOES AGAIN. PATIENT REMINDED NOT TO BEAR WEIGHT ON THE LEFT FOOT. PATIENT PLACED IN BED WITH ASSIST X1. LEFT FOOT ELEVATED.
--- NOTE | 2021-04-26 18:40 | NUR ---
NOTIFIED THAT PT IS COMPLAINING OF NECK PAIN REQUESTED CREAM. NEW ORDERS GIVEN.
[2021-04-26 19:58] VITALS: BP 125/61; TEMP 98.4
[2021-04-27 08:00] VITALS: BP 130/59; TEMP 98.3
--- NOTE | 2021-04-27 08:55 | NUR ---
UPON ENTERING PT ROOM, PT IN LOW FOWLERS POSITION IN BED. C/O PAIN TO LLE. NO REDNESS OR SWELLING OR EDEMA NOTED TO LLE. NO DRAINAGE NOTED AT PIN SITE. PT A&O, NAD NOTED. PT COMPLIANT WITH TX. ASSISTED PT ONTO BEDPAN.
--- NOTE | 2021-04-27 09:07 | NUR ---
[facility] NON-EMERGENCY HAS ACCEPTED TRIP TO TAKE PATIENT TO [facility] [place] ON TUESDAY. [phone] IS THE PHONE NUMBER FOR [facility]. SPOKE WITH YOSELYN TO CONFIRM TRANSPORT.
--- NOTE | 2021-04-27 12:42 | NUR ---
PIN SITE CARE COMPLETED ON PT ORDERED. NO DRAINAGE NOTED AT PIN SITES TO LLE. ASSISTED PT TO BEDSIDE COMMODE AND BACK IN BED. PT C/O OF SEVERE PAIN TO LLE R/T PT. PAIN MED GIVEN ORDERED. PT ED ON PAIN MGMT. NAD NOTED. PT A&O. AT BEDSIDE.
--- NOTE | 2021-04-27 17:25 | NUR ---
PT IN BED IN LOW FOWLERS POSITION. LLE ELEVATED ON PILLOW. NO DRAINAGE, REDNESS OR SWELLING NOTED TO LLE. PT C/O NECK AND SHOULDER PAIN AND RUBBED VOLTAREN CREAM ON NECK/SHOULDER ORDERED. NAD NOTED. NO OTHER COMPLAINTS VOICED. PT A&O. PT COMPLIANT WITH TX
[2021-04-27 20:00] VITALS: BP 121/56; TEMP 98.2
--- NOTE | 2021-04-27 20:30 | NUR ---
ENTERED PATIENT'S ROOM. PATIENT REQUESTING TO USE BSC. ASSIST PROVIDED X 2. PATIENT DID ATTEMPT TO PUT SOME WEIGHT ON LLE. SMALL BM NOTED. EXTERNAL FIXATOR PIN SITES C/D/I. SLIGHT PINK COLOR NOTED TO ANTERIOR PIN SITE. NO DRAINAGE OR SWELLING NOTED. LLE ELEVATED. PATIENT REQUESTING SOMETHING FOR PAIN WITH PM MEDICATIONS. NO OTHER CONCERNS OR COMPLAINTS VOICED AT THIS TIME. RESPIRATIONS EVEN AND UNLABORED. NAD NOTED. BED LOCKED AND IN LOWEST POSITION. CALL LIGHT WITHIN REACH.
--- NOTE | 2021-04-27 23:00 | NUR ---
PATIENT RESTING QUIETLY IN BED. RESPIRATIONS EVEN AND UNLABORED. NAD NOTED. CALL LIGHT WITHIN REACH.
--- NOTE | 2021-04-28 06:25 | NUR ---
PATIENT RESTING QUIETLY IN BED WITH EYES CLOSED. RESPIRATIONS EVEN AND UNLABORED. LLE ELEVATED. NAD NOTED. CALL LIGHT WITHIN REACH.
[2021-04-28 08:00] VITALS: BP 151/60; TEMP 98.2
--- NOTE | 2021-04-28 12:39 | NUR ---
TRANSPORTATION HAS BEEN ARRANGED FOR TUESDAY TO [facility]. ACCEPTED THE TRANSPORT AND WILL BE ARRIVING AROUND 5:45-6:00AM. THE PATIENT HER , THE SWINGBED COORDINATOR AND THE NURSING STAFF HAS BEEN UPDATED ON THE PLAN.
--- NOTE | 2021-04-28 15:30 | NUR ---
INFORMED PER NICOLE IN UR THAT SURGEONS OFFICE NEEDED TO BE CONTACTED TO OBTAIN ANY PRE-OP ORDERS THAT MAY BE NEEDED FOR NURSING STAFF PRIOR TO SURGERY. SO [facility] CALLED INSTRUCTED AND SPOKE WITH KEREN BERRY PICKER. SHE STATED THAT "THE NUMBER ON FILE" WOULD BE CONTACTED THE NITE BEFORE. I EXPLAINED THAT THE PT WAS IN OUR FACILITY FOR IN PT REHAB AND IT WAS THE NURSES IN HOSP RESPONSIBILITY TO CARRY OUT ANY ORDERS NEEDED PRIOR TO SURGERY DATE ON 05-01-21 AT 0800 IN [facility]. KEREN TRANSFEREED ME THEN TO [facility] AND I SPOKE WITH THIERRY SABILLON. SHE WAS ABDULKADIR ALL [facility] AND SHE TRANSFERED ME TO PRE-OP AND NO ONE ANSWERED THERE AT THIS TIME.
[2021-04-28 20:00] VITALS: BP 126/61; TEMP 98.1
--- NOTE | 2021-04-28 20:55 | NUR ---
PT RESTING QUIETLY IN BED WITH EYES CLOSED, NO S/S OF PAIN OR DISTRESS NOTED, RESP RATE NONLABORED, WILL MONITOR CLOSELY, RAILS UP, BED IN LOW POSITION, CALL LIGHT IN REACH.
--- NOTE | 2021-04-28 23:05 | NUR ---
PT FOUND RESTING WITH EYES CLOSED WITH NO ACUTE DISTRESS NOTED, AROUSES TO PUMPER HEAD BEING IN ROOM AND IS TALKATIVE. RESP RATE NONLABORED, ON ROOM AIR, EXTERNAL FIXATOR INTACT TO L LOWER LEG WITH NO S/S OF INFECTION OR PROBLEMS NOTED TO SITE(ELEVATED SLIGHTLY ON PILLOW), LUNGS CLEAR TO AUSCULTATION, BS+. WHEN ASKED PT STATES SHE HAD A BM EARLIER TODAY. C/O CONSANT PAIN TO L LOWER LEG THAT IS A HURT AND RATES PAIN AN 8 ON SCALE OF 0-10. BROUGHT NORCO 5/325MG PO PRN PER PT REQUEST FOR PAIN AND ALSO BROUGHT PT VISTARIL 25MG PO PRN FOR C/O ITCHING. PT CONTINUES TO TAKE MEDS PER SELF WITH NO ASSIST. ASSISTED PT TO USE BEDPAN, PT TURNS SIDE TO SIDE PER SELF AND STAFF PLACES MCKEON UNDER PT THEN REMOVES IT AND WIPES PT. TILTED BE DOWN AND PT PULLED SELF UP IN BED WITH NO ASSIST EXCEPT TO TILT BED. HOB NOW ELEVATED AND PT BROUGHT TOMATO SOUP PER REQUEST. ENCOURAGED TO CALL NEEDED, RAILS UP, BED IN LOW POSITION, CALL LIGHT IN REACH ALONG WITH PT'S BELONGINGS AND BEDSIDE TABLE. NOTE PT FEEDS SELF.
--- NOTE | 2021-04-28 23:50 | NUR ---
PT STATES PAIN IS TOLERABLE SINCE PRN PAIN MEDICATION GIVEN, WILL MONITOR CLOSELY.
--- NOTE | 2021-04-29 01:30 | NUR ---
RESTING WITH EYES CLOSED, NO S/S OF PAIN OR DISTRESS NOTED, WILL MONITOR CLOSELY, RAILS UP, BED IN LOW POSITION, CALL LIGHT IN REACH.
--- NOTE | 2021-04-29 03:20 | NUR ---
RESTING WITH EYES CLOSED, NO S/S OF PAIN OR DISTRESS NOTED, RESP RATE NONLABORED, ON ROOM AIR, L FOOT ELEVATED ON PILLOW, WILL MONITOR, RAILS UP, BED IN LOW POSITION.
--- NOTE | 2021-04-29 04:50 | NUR ---
PT AWAKE CALLED SUPERVISOR FERTILIZER PROCESSING LIGHT NEEDS TO USE BEDPAN. PT COMPUTER HARDWARE TECHNICIAN ASSISTED PT TO USE BEDPAN. WILL MONITOR CLOSELY, RAILS UP, BED IN LOW POSITION, CALL LIGHT IN REACH.
--- NOTE | 2021-04-29 06:15 | NUR ---
PT FOUND AWAKE AND ORIENTED LAYING IN BED IN POSITION OF COMFORT. DENIES ANY PAIN OR PROBLEMS, NO S/S OF DISTRESS NOTED. PT TALKATIVE WITH STAFF. GAVE PO MEDICATIONS, PT TOOK MEDS PER SELF. ASSISTED PT ON AND OFF BEDPAN WITH SOME ASSIST. NOTE PT URINATED YELLOW URINE. PT BED TILTED AND PT PULLED HER SELF UP IN BED, L LEG ELEVATED ON PILLOWS AND EXTERNAL FIXATOR INTACT WITH NO PROBLEMS NOTED. WILL MONITOR CLOSELY, RAILS UP, BED IN LOW POSITION, CALL LIGHT IN REACH. ENCOURAGED TO CALL NEEDED.
[2021-04-29 08:00] VITALS: BP 150/73; TEMP 98.2
--- NOTE | 2021-04-29 08:34 | NUR ---
PT REQUESTING TO GET UP TO BSC, STATES THERAPY HAS SHOWN HER HOW TO TRANSFER TO BSC WITH MIN WEIGHT BEARING TO LLE. BSC POSITIONED BESIDE BED AND ARM RAIL LOWERED. PT ABLE TO SLIDE TO EDGE OF BED AND TRANSFER TO BSC WITH BALANCE ASSIST FROM NURSE, PT DEMONSTRATED ADEQUATE PIVOT ON UNAFFECTED LIMB WITH MINIMAL WEIGHT BEARING ON LLE. PT HAD LARGE BM, PROVIDED OWN PERICARE AND ASSISTED WITH TRANSFER BACK TO BED AGAIN USING MINIMAL WEIGHT TO LLE. PT ASSISTED WITH BED MOBILITY AND SLIDING UP INTO BED. BED LOWERED, SR UP X2 FOR SAFETY, CALL LIGHT IN EASY REACH. WILL CONTINUE TO MONITOR.
--- NOTE | 2021-04-29 09:03 | NUR ---
PT CONDITION AND CHART REVIEWED WITH NO NEW ORDERS GIVEN AT THIS TIME
--- NOTE | 2021-04-29 09:26 | NUR ---
SPOKE TO TRINITY AT [facility] AT [phone] TO OBTAIN PREOP ORDERS. CALL WAS TRANSFERRED TO ENROLLMENT ADVISOR IN ORDER TO SPEAK WITH SOMEONE IN THE SURGICAL DEPARTMENT. THE DR OFFICE DOES NOT GIVE PREOP ORDERS. UNABLE TO OBTAIN ANY PREOP ORDERS AT THIS TIME. NO ANSWER IN PREOP DEPARTMENT.
--- NOTE | 2021-04-29 09:31 | NUR ---
SPOKE TO PT REGARDING PREOP ORDERS AND LET HER KNOW THAT SOMEONE FROM [facility] SHOULD BE CONTACTING HER THE NIGHT BEFORE SURGERY TO GIVE HER ANY SPECIAL INSTRUCTIONS. IF SHE WOULD PLEASE ALLOW THE NURSING STAFF HERE TO SPEAK WITH THE NURSE GIVING PREOP INSTRUCTIONS.
--- NOTE | 2021-04-29 15:11 | NUR ---
SPOKE TO KAYCE IN PREOP AT [facility]. CALL BACK NUMBER IS [phone]. LEFT MESSAGE WITH IFTIKHAR FORBES TO SURGEON. ASKING FOR MORE SPECIFIC PREOP ORDERS. REGARDING LOVENOX AND PAIN MEDICATIONS. CALL BACK NUMBER [phone]
[2021-04-29 20:00] VITALS: BP 114/57; TEMP 98.1
--- NOTE | 2021-04-29 23:38 | NUR ---
PATIENT IS MOVING MORE FREELY IN THE BED. THE PATIENT IS ABLE TO DRESS HERSELF AND GET UP TO THE BSC WITH MINIMAL ASSISTANCE. PATIENT SURICAL SITE IS CLEAN DRY AND INTACT. PATIENT REPORTS MODERATE PAIN AND ITCHING WICH WAS TREATED WITH PRN MEDICATION. PATIENT NOW IS RESTING WATCHING TV
--- NOTE | 2021-04-30 04:59 | NUR ---
NYASTATIN APPLIED TO BUTTOCK FOR ITCHING
[2021-04-30 08:00] VITALS: BP 130/65; TEMP 98.4
--- NOTE | 2021-04-30 16:45 | NUR ---
SPOKE TO REHANA AT [phone] TO CLARIFY ORDERS- PER DAY SURGERY, HOLD LOVENOX. ALSO IT IS OK FOR PATIENT TO KEEP FENTANYL PATCHES ON. PT IS TO BE NPO AT MIDNIGHT.
--- NOTE | 2021-04-30 17:55 | NUR ---
PT REPORTS HAVING AND "OK" DAY TODAY. SHE HAD TWO DOSES OF PAIN MEDICATION FOR HER LLE, AND ONE DOSE OF TYLENOL FOR HEADACHE. SHE INITIALLY REFUSED TO PARTICIPATE WITH PT UNTIL SHE TOOK HER PAIN MEDS, BUT DID WORK WITH THEM LATER. SHE HAS DEMONSTRATED TRANSFERS WITH ASSIST AND MIN WT BEARING TO LLE FROM BED TO BSC AND GETS UP TO BSC FOR BMS. PIN SITE CARE PERFORMED THIS AM, TOLERATED WELL. NO REDNESS OR DRAINING NOTED TO INSERTION SITES OR TO INCISION, STERISTRIPS STILL IN PLACE. NO EDEMA NOTED TO LLE. PT JACQUELINE MEALS AND SNACKS BETWEEN MEALS WITH FOOD PROVIDED BY FAMILY.
[2021-04-30 20:00] VITALS: BP 132/64; TEMP 98.3
--- NOTE | 2021-05-01 04:44 | NUR ---
PATIENT WAS INFORMD THAT SHE IS TO BE GOING TO LEAVE ON TRANSPORT [id number]. I TOLD THE PATIENT I WOULD WAKE HER AT 0500 AND WE WOULD GET READY
--- NOTE | 2021-05-01 17:45 | NUR ---
PT R/T FROM [facility] VIA TRANSPORT. PT ALERT. C/O N/V AND PAIN TO LLE. ASSISTED PT TO BEDSIDE COMMODE TO VOID. EITAN BANDAGE AND DSG INTACT TO LLE. ADEQUATE CIRCULATION TO LLE AND NO DISCOLORATION NOTEDD. PT REQUESTED TOMATO SOUP TO EAT IN THE PLACE OF HER DINNER TRAY. PT GIVEN AN ICE PACK FOR C/O HEADACHE. PAIN MED AND ANTI-NAUSEA MED ADMINISTERED ORDERED. NAD NOTED.
[2021-05-01 20:00] VITALS: BP 167/83; TEMP 98.3
--- NOTE | 2021-05-01 20:13 | NUR ---
PT C/O HEADACHE THAT SHE HAS HAD "ALL WEEK" AND STATES IT IS WORSE ALSO STATES SHE GETS HEADACHE AFTER SHE HAS BEEN PUT TO SLEEP FOR PROCEDURE. INFORMED PT THAT SHE HAD OXYCODONE AROUND 1800 AND THAT SHE WOULD GET NIGHT MEDS AROUND 2029. GAVE FLEXIRIL 10MG PO PRN PER PT REQUEST STATES IT WILL HELP WITH PAIN CAUSE IT WILL HELP 'RELAX" HER. THINKS HEADACHE IS ALSO FROM HER SINUSES. PT LITTLE GROGGY FROM PROCEDURE SHE HAD EARLIER TODAY BUT ORIENTED WITH NO ACUTE DISTRESS NOTED, RESP RATE NONLABORED, ON ROOM AIR, CAST INTACT TO L LOWER LEG WITH EITAN BANDAGE DRY AND INTACT NOTE TOES WARM AND NORMAL COLOR. WILL MONITOR CLOSELY, RAILS UP, BED IN LOW POSITION, CALL LIGHT IN REACH, AT BEDSIDE.
--- NOTE | 2021-05-01 20:40 | NUR ---
PT GIVEN NIGHTLY MEDICATIONS WHICH SHE TOOK PER SELF WITH NO PROBLEMS. WILL MONITOR CLOSELY.
--- NOTE | 2021-05-01 23:45 | NUR ---
CALL LIGHT ANSWERED PT REQUESTING MULTIPLE THINGS. GAVE ZOFRAN 4MG ODT PO PRN SCUBA DIVE TRAINING INSTRUCTOR IN ROOM AT AROUND 2336 TO ASSIST PT WITH MULTIPLE REQUESTS AND DEPEND CHANGED ALSO. AT 2350 PER REQUEST JUST IN CASE PT BECOMES NAUSEATED WHEN ATTEMPTING TO EAT TOMATO SOUP THAT SHE HAS REQUESTED. C/O PRESSURE AND PAIN TO EARS, HEAD(HEADACHE),AND UNDER EYES IN SINUS AREA PER PT. RATES PAIN A "10" ON SCALE AND STATES IT IS CONSTANT. 2357 GAVE OXYCODONE 7.5MG PO PRN FOR PAIN. RUBBED PT'S NECK AND UPPER SHOULDERS WITH VOLTAREN GEL PRN AND ALSO GAVE VISTARIL 25MG PO PRN PER PT REQUEST IN CASE SHE STARTS "ITCHING" FROM MEDICATIONS. PT PULLED SELF UP IN BED. STATES THAT HER L FOOT FEELS FINE, CAST AND EITAN WRAP REMAINS INTACT AND ELEVATED ON PILLOWS. PT WAS ABLE TO TOLERATE A LITTLE MORE THAN HALF CUP OF TOMATO SOUP. WILL MONITOR RAILS UP, BED IN LOW POSITION.
--- NOTE | 2021-05-02 00:20 | NUR ---
CALL LIGHT ANSWERED, PT STATES SHE NEEDS TO BE CHANGED. PT FOUND AWAKE WITH NO DISTRESS NOTED. STATES SHE IS HAVING SOME URINARY INCONTINENCE AT TIMES WHEN SHE COUGHS AND NEEDS TO BE CHANGED AGAIN(PT CHANGED BY DRAPERY ESTIMATOR AROUND 2330). PT ROLLS SIDE TO SIDE IN BED DRAPERY ESTIMATOR ASSISTED TO CHANGE DEPEND AND ASSISTED WITH CLEANING PT WITH WET WIPES. HEAD OF BED TILTED DOWN AND PT PULLED SELF UP IN BED USING BEDRAILS WITH NO PHYSICAL ASSIST FROM STAFF. DENIES ANY OTHER NEEDS AND STATES SHE IS GOING TO FINISH HER TOMATO SOUP THEN GO TO SLEEP. L LEG ELEVATED ON PILLOWS, RESP RATE NONLABORED, WILL MONITOR CLOSELY, RAILLS UP, BED IN LOW POSITION, CALL LIGHT IN REACH.
--- NOTE | 2021-05-02 03:00 | NUR ---
RESTING WITH EYES CLOSED, NO S/S OF PAIN OR DISTRESS NOTED, WILL MONITOR CLOSELY, RAILS UP, BED IN LOW POSITION, CALL LIGHT IN REACH.
--- NOTE | 2021-05-02 05:25 | NUR ---
CALL LIGHT ANSWERED. PT ASSISTED TO USE BEDPAN, NOTE PT URINATED. BROUGHT PT TOMATO SOUP AND DRINK PER REQUEST. ALSO PT C/O CONSTANT HEADACHE THAT SHE STATES JUST "HURTS" AND RATES PAIN A "5" ON SCALE, 0527 GAVE OXYCODONE 7.5MG PO PRN FOR PAIN. NO ACUTE DISTRESS NOTED, CAST AND EITAN WRAP INTACT TO SURGICAL SITE TO L LOWER LEG NOTE TOES WARM AND NORMAL COLOR SOME SWELLING NOTED TO TOES AND KNEE BUT LEG REMAINS ELEVATED ON PILLOWS. WILL MONITOR CLOSELY, RAILS UP, BED IN LOW POSITION, CALL LIGHT IN REACH.
--- NOTE | 2021-05-02 06:55 | NUR ---
PT AWAKE WATCHING TV WITH NO S/S OF DISTRESS NOTED, STATES HER HEADACHE IS BETTER NOW. GAVE SCHEDULED MEDS PO ALONG WITH FLEXERIL 10MG PO PRN PER PT REQUEST. WILL MONITOR CLOSELY, RAILS UP, BED IN LOW POSITION, CALL LIGHT IN REACH. L LEG ELEVATED ON PILLOWS WITH NO PROBLEMS NOTED.
[2021-05-02 08:00] VITALS: BP 118/55; TEMP 98.1
--- NOTE | 2021-05-02 13:07 | NUR ---
I visited with jamal on and went over the diet and she is on 2000 calorie ada and she stated she wasnt to be on a Regular diet and she has M and M's and all type of candies, cookies, crackers in her room, she stated she does not follow a diet and does nto want. She had baked chicken on her tray and she stated she only wanted fried chicken amd I ask her if she would like a dietary refusal form to sign and then the [facility] service staff will send her a Regular dite and she stated yes and I talked to Nicole about and she said she would get her a form to sign. I also met with IDT at 2:30 with Ms. Hayward and her .
--- NOTE | 2021-05-02 15:00 | NUR ---
IN PT RM TO CHANGE BRIEF AT THIS TIME, PT STATES WHEN SHE COUGHS SHE URINATES AND UNABLE TO CONTROL IT, PT TURNED FROM EACH SIDE WITHOUT ASSISTANCE, GAVE PT ASSISTANCE WITH WIPING AREA CLEAN, PT POSITONED SELF UP IN BED WITH SET UP HELP ONLY, NO FURHTER NEEDS AT THIS TIME, CALL LIGHT WITHIN REACH, WILL CONTINUE TO MONITOR
--- NOTE | 2021-05-02 16:45 | NUR ---
NOTIFED OF PT STATING "THE PAIN MEDICATION IS NOT HELPING MY ANKLE IS STILL HURTING," MS ORDERS TO GIVE TORADOL 30MG IM ONCE NOW, NO FURTHER ORDERS GIVEN
[2021-05-02 20:00] VITALS: BP 137/57; TEMP 98.2
--- NOTE | 2021-05-02 20:42 | NUR ---
ENTERED PT'S ROOM, LIGHTS ARE ON AND TV IS ON. PT IS LAYING IN LOW VIEYRA. BREATHING IS EVEN AND NONLABORED. NO COUGH IS NOTED AT THIS TIME. S1 AND S2 HEART SOUNDS ARE PRESENT. PT STATES THAT THE ANKLE ON THE LEFT FOOT FEELS IF THE CAST IS RUBBING HER ANKLE RAW AND IT HURTS. PRN DOSE OF OXYCODONE HAS BEEN GIVEN. PT MOVED UP IN THE BED WITHOUT ANY ASSISTANCE. NAD IS NOTED AT THIS TIME.
[2021-05-03 08:00] VITALS: BP 123/64; TEMP 98
--- NOTE | 2021-05-03 09:00 | NUR ---
IN PT RM FOR MORNING ASSESSMENT AND MORNING MED PASS, PT SITTING IN LF, NAD NOTED, NONLABORED BREATHING, LT LEG ELEVATED ON 2 PILLOWS, PT STATES "I AM NOT IN ALOT OF PAIN THIS MORNING BUT I WANT TO TAKE MY PAIN MEDICATION TO STAY ON TOP OF IT SO IT DOESNT GET BAD LIKE YESTERDAY," PT TOOK MEDICATIONS WITHOUT DIFFICULTY, CAST AND EITAN BANDAGE TO LT LEG CDI, PT HAS NO NEEDS AT THIS TIME, CALL LIGHT WITHIN REACH, WILL CONTINUE TO MONITOR
--- NOTE | 2021-05-03 14:00 | NUR ---
RESPONDED TO CALL LIGHT, PT REQUESTING ICE AT THIS TIME, PT IS SITTING UP ON SIDE OF BED WITHOUT ASSISTANCE NEEDED, PT STATES HER LT LOWER EXT WAS BEGINNING TO HURT AND PAIN MEDICATION IS ADMINISTERED AT THIS TIME, PT POSITIONED HERSELF BACK UP IN THE BED IN WIHTOUT ASSISTANCE, AT BEDSIDE, NO FURTHER NEEDS AT THIS TIME, CALL LIGHT WITHIN REACH
--- NOTE | 2021-05-03 16:00 | NUR ---
OT IN RM WITH PT AT THIS TIME, PT STATES SHE DOES NOT WANT TO MOVE HER LEG TODAY DUE TO THE PAIN IT MAY CAUSE, OT PERFORMED ARM EXERCISES WITH THE PT
[2021-05-03 20:00] VITALS: BP 123/53; TEMP 98.5
[2021-05-04 08:00] VITALS: BP 127/72; TEMP 98.1
--- NOTE | 2021-05-04 08:55 | NUR ---
PT AT BEDSIDE. PATIENT UP IN CHAIR. PATIENT TOSSING BALL WITH PT. PATIENT DENIES PAIN AT THIS TIME. CAST INTACT AND DRY WITH EITAN BANDAGE WRAPPED. WILL CONTINUE TO MONITOR.
--- NOTE | 2021-05-04 10:30 | NUR ---
PATIENT REQUESTED TO BE TRANSFERRED BACK TO BED. PCT TRANSFERRED TO BED WITH WITH ASSIST X1. PATIENT TOLERATED WELL. PATIENT FREE OF NEEDS AT THIS TIME. WILL CONTINUE TO MONITOR.
--- NOTE | 2021-05-04 13:06 | NUR ---
OT AT BEDSIDE. PATIENT SITTING ON SIDE OF BED EATING LUNCH. PATIENT DENIES PAIN AT THIS TIME. CAST DRY AND INTACT WITH EITAN WRAP IN PLACE. CAPILLARY REFLL LESS THAN 3 SEC IN LEFT FOOT. TOES WARM AND NORMAL COLOR. WILL CONTINUE TO MONITOR.
[2021-05-04 19:50] VITALS: BP 143/69; TEMP 98.3
--- NOTE | 2021-05-04 21:06 | NUR ---
PT REQUESTED PAIN PILL WITH NIGHT MEDS. OXYCODONE 5MG PO GIVEN FOR LEVEL6 PAIN IN LEFT LEG.
--- NOTE | 2021-05-05 03:09 | NUR ---
PT RESTING WELL. HAS HAD NO VOICED COMPLAINTS.
--- NOTE | 2021-05-05 07:51 | NUR ---
PATIENT REQUESTED TO USE BEDPAN. PATIENT REQUESTED PAIN MEDICATION AT THIS TIME. STATING THAT PAIN IS 10 OUT OF 10. PATIENT IN LF WATCHING TV. WILL CONTINUE TO MONITOR.
[2021-05-05 08:00] VITALS: BP 143/65; TEMP 98.1
[2021-05-05] MEDS ORDERED: BLOOMIS59 PO ×7 (09:53→10:14)
[2021-05-05] MEDS ORDERED: BLOOMIS59 INH (09:58)
[2021-05-05] MEDS ORDERED: BLOOMIS59 TOP (10:13)
--- NOTE | 2021-05-05 12:06 | NUR ---
05/04/21 Spoke with and faxed [facility] ph [phone] orders for hospital bed, wheel chair with elevating leg rest, and shower bench. 05/05/21 spoke with and faxed [facility] ph [phone] orders for home health nursing and physical therapy. pt scheduled for fu with PCP Dr. Rios @ [facility] ph [phone] for 05/08/21 @ 11am and for Dr. Ivy frias ph [phone] for 05/11/21 @ 3:30pm. I will fax DC summary to all of their offices.
--- NOTE | 2021-05-05 15:59 | NUR ---
PATIENT DISCHARGED TO HOME VIA PERSONAL VEHICLE WITH DRIVING. PATIENT WHEELED TO EXIT IN WHEELCHAIR
== END 2021-05-05 15:25 | disposition home health service (06) | DRG 560 ==
LOC: MED/SURG 12:12
PROVIDERS: Internal Medicine Endocrinology, Diabetes & Metabolism; ADMIT Internal Medicine; ATTEND Internal Medicine
DX: S82.892D Other fracture of left lower leg, subsequent encounter for closed fracture with routine healing (principal); S93.05XD Dislocation of left ankle joint, subsequent encounter; S91.002D Unspecified open wound, left ankle, subsequent encounter; M62.81 Muscle weakness (generalized); Z74.1 Need for assistance with personal care; R26.81 Unsteadiness on feet; I48.0 Paroxysmal atrial fibrillation; M06.9 Rheumatoid arthritis, unspecified; J44.9 Chronic obstructive pulmonary disease, unspecified; E66.01 Morbid (severe) obesity due to excess calories; G89.4 Chronic pain syndrome; F41.9 Anxiety disorder, unspecified; N18.9 Chronic kidney disease, unspecified; F33.9 Major depressive disorder, recurrent, unspecified
CPT/HCPCS: 80048; 85027; 87081; J1885; Q0177

== ENCOUNTER 2021-06-12 10:52 | Outpatient (CLI) | payer OTHER ==
[~2021-06-12 10:52] MED LIST changes: +BLOOMIS59 INH; +BLOOMIS59 PO; +BLOOMIS59 TOP; +DULO60CA2 PO; +HYDR5TAB9 PO; +LYRICA150 MG PO; +METOPROLOL25 M1 PO; +ONDA4TAB3 PO; +PEPCID20 MG PO; +PRED10TA27 PO; +ROPI5T PO
== END 2021-06-12 19:08 | disposition home or self-care (01) ==
LOC: RAD 10:52 → LAB 10:52 → RAD 19:08
PROVIDERS: ATTEND Internal Medicine
DX: M25.572 Pain in left ankle and joints of left foot (principal); Z98.890 Other specified postprocedural states
CPT/HCPCS: 87070; 87205

== ENCOUNTER 2021-09-01 15:15 | Outpatient (CLI) | payer OTHER ==
[2021-09-01 15:34] LABS: PLATELET COUNT 553 K/uL (152-353)
[2021-09-01 15:52] LABS: POTASSIUM 5.9 mmol/L (3.6-5.2)
== END 2021-09-01 19:40 | disposition home or self-care (01) ==
LOC: LAB 15:15
PROVIDERS: ATTEND Internal Medicine Infectious Disease
DX: S82.55XD Nondisplaced fracture of medial malleolus of left tibia, subsequent encounter for closed fracture with routine healing (principal); T81.31XD Disruption of external operation (surgical) wound, not elsewhere classified, subsequent encounter; I48.0 Paroxysmal atrial fibrillation; I50.9 Heart failure, unspecified; Y92.9 Unspecified place or not applicable; I11.0 Hypertensive heart disease with heart failure
CPT/HCPCS: 80053; 85027; 85652; 86140

== ENCOUNTER 2021-11-27 12:04 | Outpatient (CLI) | payer OTHER | END 2021-11-27 23:03 | disposition home or self-care (01) | LOC: MAMMO 12:04 | PROVIDERS: ATTEND Internal Medicine | DX: Z12.31 Encounter for screening mammogram for malignant neoplasm of breast (principal); M81.0 Age-related osteoporosis without current pathological fracture ==

== ENCOUNTER 2022-06-16 12:07 | Emergency (ER) | payer OTHER ==
[~2022-06-16] VITALS: Ht 152.4 cm; Wt 95.3 kg
[2022-06-16 12:11] VITALS: BP 152/77; TEMP 99.1
== END 2022-06-16 14:00 | disposition home or self-care (01) ==
LOC: ED 12:07
DX: J20.9 Acute bronchitis, unspecified (principal); Z20.822 Contact with and (suspected) exposure to COVID-19
CPT/HCPCS: 81002; 87502; 87635; 87651; 99283; U0003

== ENCOUNTER 2023-04-09 08:19 | Emergency (ER) | payer OTHER ==
[~2023-04-09] VITALS: Ht 152.4 cm; Wt 124.7 kg
[2023-04-09 09:13] LABS: PLATELET COUNT 361 K/uL (152-353)
[2023-04-09 09:26] LABS: PARTIAL THROMBOPLASTIN TIME 29.6 SECONDS (23.9-36.7)
[2023-04-09 09:33] LABS: POTASSIUM 6.1 mmol/L (3.6-5.2)
[2023-04-09 10:39] VITALS: TEMP 98.3
[2023-04-09 11:41] VITALS: BP 109/37
== END 2023-04-09 11:50 | disposition short-term general hospital (02) ==
LOC: ED 08:19
PROVIDERS: Family Medicine
DX: R50.9 Fever, unspecified (principal); I95.9 Hypotension, unspecified; A41.89 Other specified sepsis; E87.5 Hyperkalemia; N18.9 Chronic kidney disease, unspecified; A49.02 Methicillin resistant Staphylococcus aureus infection, unspecified site
CPT/HCPCS: 36415; 51702; 80053; 80307; 81002; 83605; 85027; 85610; 85730; 87040; 87502; 87635; 93005; 96361; 96365; 96366; 96375; 96376; 99285; J1265; J2405; J2543; J3370; U0003

== ENCOUNTER 2023-08-09 14:19 | Outpatient (CLI) | payer OTHER | END 2023-08-09 20:49 | disposition home or self-care (01) | LOC: MRI 14:19 | PROVIDERS: ATTEND Student in an Organized Health Care Education/Training Program | DX: M47.812 Spondylosis without myelopathy or radiculopathy, cervical region (principal); M54.12 Radiculopathy, cervical region ==

== ENCOUNTER 2023-08-11 08:51 | Outpatient (CLI) | payer OTHER | END 2023-08-11 19:11 | disposition home or self-care (01) | LOC: MRI 08:51 | PROVIDERS: ATTEND Student in an Organized Health Care Education/Training Program | DX: M80.08XA Age-related osteoporosis with current pathological fracture, vertebra(e), initial encounter for fracture (principal); M54.14 Radiculopathy, thoracic region; M47.814 Spondylosis without myelopathy or radiculopathy, thoracic region; M54.16 Radiculopathy, lumbar region; M47.816 Spondylosis without myelopathy or radiculopathy, lumbar region; M96.1 Postlaminectomy syndrome, not elsewhere classified | CPT/HCPCS: 36415; 82565; 84520; A9576 ==